=== PATIENT | female | born 1980 | race Caucasian/White ===

== ENCOUNTER 2017-10-25 13:12 | Inpatient (IN) | payer OTHER ==
[2017-10-25] MEDS ORDERED: ONDANSETRON 4 MG INJ IV (14:30)
[2017-10-25] MEDS ORDERED: morphine 2 MG INJ IV (14:30)
[2017-10-25] MEDS: SOD CHLORIDE 0.9% 1,000 ML IV ×2 (14:40→22:03)
[2017-10-25 15:16] LABS: ADD MAN DIFF? NO
[2017-10-25 15:21] LABS: BASOPHIL # 0.1 10^3/ul (0.0-0.1); BASOPHILS % 0.4 % (0.0-2.0); EOSINOPHILS # 0.2 10^3/ul (0.0-0.5); EOSINOPHILS % 1.1 % (0.0-7.0); HEMATOCRIT 40.6 % (37.0-47.0); HEMOGLOBIN 13.1 g/dl (12.0-16.0); LYMPHOCYTES % 9.3 % (15.0-51.0); MEAN CORPUSCULAR HEMOGLOBIN 28.4 pg (29.0-33.0); MEAN CORPUSCULAR HGB CONC 32.3 g/dl (32.0-37.0); MEAN CORPUSCULAR VOLUME 88.1 fl (82.0-101.0); MONOCYTE # 0.8 10^3/ul (0.3-0.9); MONOCYTES % 3.8 % (0.0-11.0); NEUTROPHIL # 17.8 10^3/ul (1.6-7.5); NEUTROPHILS % 84.8 % (39.0-77.0); PLATELET COUNT 370 10^3/UL (140-415); RED BLOOD COUNT 4.61 10^6/ul (4.20-5.40); RED CELL DISTRIBUTION WIDTH 12.5 % (11.5-14.5)
[2017-10-25 15:34] LABS: HEMOGLOBIN A1C 5.3 % (0-5.9)
[2017-10-25 15:38] LABS: LACTIC ACID 1.5 mmol/L (0.5-2.0)
[2017-10-25 15:39] LABS: AMYLASE 55 U/L (11-123)
[2017-10-25 15:39] LABS: CHOL/HDL RATIO 4.2 RATIO; CHOLESTEROL 153 mg/dl (100-200); HDL CHOLESTEROL 36 mg/dl (34-82); LDL CHOLESTEROL,CALCULATED 86 mg/dl; LIPASE 122 U/L (23-300); TRIGLYCERIDES 154 mg/dl (0-149)
[2017-10-25 15:58] LABS: FREE T4 (FREE THYROXINE) 0.79 ng/dl (0.79-2.35)
[2017-10-25 16:10] LABS: ADD UMIC NO; UR ASCORBIC ACID NEGATIVE (NEGATIVE); UR BILIRUBIN (Dip) NEGATIVE (NEGATIVE); UR BLOOD (Dip) NEGATIVE (NEGATIVE); UR CLARITY CLEAR (CLEAR); UR COLOR STRAW (YELLOW); UR GLUCOSE (Dip) NEGATIVE (NEGATIVE); UR KETONES (Dip) NEGATIVE (NEGATIVE); UR LEUKOCYTE ESTERASE (Dip) NEGATIVE Leu/ul (NEGATIVE); UR NITRITE (Dip) NEGATIVE (NEGATIVE); UR SPECIFIC GRAVITY (Dip) 1.005 (1.003-1.030); UR TOTAL PROTEIN (Dip) NEGATIVE (NEGATIVE); UR UROBILINOGEN (Dip) NEGATIVE (NEGATIVE)
[2017-10-25 16:26] LABS: ALANINE AMINOTRANSFERASE 41 IU/L (13-69); ALBUMIN 3.6 g/dl (3.3-4.9); ALBUMIN/GLOBULIN RATIO 1.09; ALKALINE PHOSPHATASE 93 IU/L (42-121); ANION GAP 12 (8-16); ASPARTATE AMINO TRANSFERASE 25 IU/L (15-46); BILIRUBIN,INDIRECT 0.1 mg/dl (0-1.1); BILIRUBIN,TOTAL 0.1 mg/dl (0.2-1.3); BLOOD UREA NITROGEN 6 mg/dl (7-20); CALCIUM 8.5 mg/dl (8.4-10.2); CARBON DIOXIDE 25 mmol/L (21-31); CHLORIDE 105 mmol/L (97-110); CREATININE 0.68 mg/dl (0.44-1.00); GLUCOSE 100 mg/dl (70-220); PHOSPHORUS 3.2 mg/dl (2.5-4.9); SODIUM 138 mmol/L (135-144); TOTAL PROTEIN 6.9 g/dl (6.1-8.1)
[2017-10-25] MEDS: PIPER-TAZO 3.375 GM IV (PMX) 100 ML IVPB ×2 (16:26→22:16)
[2017-10-25] MEDS: LORATADINE 10 MG TAB PO (16:26)
[2017-10-25] MEDS: CEPASTAT LOZENGE MT ×3 (16:27→20:43)
[2017-10-25] MEDS: ACETAMINOPHEN 325 MG TAB PO (16:27)
[2017-10-25 20:03] LABS: LACTIC ACID 1.7 mmol/L (0.5-2.0)
[2017-10-25] MEDS: ALBUTEROL/IPRATROPIUM (NEB) 3 ML AMP HHN (20:29)
[2017-10-26] MEDS: ALBUTEROL/IPRATROPIUM (NEB) 3 ML AMP HHN ×4 (01:15→19:49)
[2017-10-26 05:07] LABS: WHITE BLOOD COUNT 25.4 10^3/ul (4.8-10.8)
[2017-10-26 05:07] LABS: ABNORMAL IP MESSAGE 1; ADD MAN DIFF? NO; BASOPHIL # 0.1 10^3/ul (0.0-0.1); BASOPHILS % 0.3 % (0.0-2.0); EOSINOPHILS # 0.1 10^3/ul (0.0-0.5); EOSINOPHILS % 0.3 % (0.0-7.0); HEMATOCRIT 39.4 % (37.0-47.0); HEMOGLOBIN 12.6 g/dl (12.0-16.0); LYMPHOCYTES # 1.4 10^3/ul (0.8-2.9); LYMPHOCYTES % 5.4 % (15.0-51.0); MEAN CORPUSCULAR HEMOGLOBIN 28.2 pg (29.0-33.0); MEAN CORPUSCULAR VOLUME 88.1 fl (82.0-101.0); MEAN PLATELET VOLUME 9.4 fl (7.4-10.4); MONOCYTE # 0.8 10^3/ul (0.3-0.9); MONOCYTES % 3.1 % (0.0-11.0); NEUTROPHIL # 22.9 10^3/ul (1.6-7.5); NEUTROPHILS % 90.4 % (39.0-77.0); PLATELET COUNT 354 10^3/UL (140-415); RED BLOOD COUNT 4.47 10^6/ul (4.20-5.40); RED CELL DISTRIBUTION WIDTH 12.9 % (11.5-14.5)
[2017-10-26 05:17] LABS: POSITIVE DIFF @See below
[2017-10-26 05:43] LABS: LACTIC ACID 1.6 mmol/L (0.5-2.0)
[2017-10-26 05:55] LABS: ALANINE AMINOTRANSFERASE 44 IU/L (13-69); ALBUMIN 3.4 g/dl (3.3-4.9); ALBUMIN/GLOBULIN RATIO 1.06; ALKALINE PHOSPHATASE 112 IU/L (42-121); ANION GAP 12 (8-16); ASPARTATE AMINO TRANSFERASE 31 IU/L (15-46); BILIRUBIN,INDIRECT 0.3 mg/dl (0-1.1); BILIRUBIN,TOTAL 0.3 mg/dl (0.2-1.3); BLOOD UREA NITROGEN 7 mg/dl (7-20); CALCIUM 8.4 mg/dl (8.4-10.2); CARBON DIOXIDE 26 mmol/L (21-31); CHLORIDE 106 mmol/L (97-110); CREATININE 0.74 mg/dl (0.44-1.00); GLUCOSE 100 mg/dl (70-220); POTASSIUM 3.9 mmol/L (3.5-5.1); SODIUM 140 mmol/L (135-144); TOTAL PROTEIN 6.6 g/dl (6.1-8.1)
[2017-10-26 05:58] LABS: PROTIME 13.3 Sec (11.9-14.9)
[2017-10-26] MEDS: PIPER-TAZO 3.375 GM IV (PMX) 100 ML IVPB ×3 (06:03→22:14)
[2017-10-26] MEDS: SOD CHLORIDE 0.9% 1,000 ML IV ×3 (06:05→22:03)
[2017-10-26 06:33] LABS: MAGNESIUM 2.1 mg/dl (1.7-2.5)
[2017-10-26 06:33] LABS: PHOSPHORUS 3.9 mg/dl (2.5-4.9)
[2017-10-26 09:24] LABS: CARCINOEMBRYONIC ANTIGEN 2.4 ng/ml (0.0-5.0)
[2017-10-26 09:24] LABS: CANCER ANTIGEN 125 8.7 U/ml (0.0-35.0)
[2017-10-26 09:28] LABS: CANCER ANTIGEN 19-9 10.1 U/ml (0.0-37.0)
[2017-10-26 09:29] LABS: ALPHA FETOPROTEIN 1.49 IU/L (0.00-7.21)
[2017-10-26] MEDS: LORATADINE 10 MG TAB PO (09:48)
[2017-10-26] MEDS: METHYLPREDNISOLONE 125 MG INJ IV ×3 (09:49→22:13)
[2017-10-26] MEDS: FAMOTIDINE 20 MG INJ IV ×2 (09:49→22:12)
[2017-10-26] MEDS ORDERED: GLYCOPYRROLATE 0.4 MG INJ (16:44)
[2017-10-26] MEDS ORDERED: PROPOFOL 20 ML (16:44)
[2017-10-26] MEDS ORDERED: NEOSTIGMINE 3 MG/3 ML SYRINGE (16:45)
[2017-10-26] MEDS ORDERED: CEFAZOLIN 1 GM INJ (16:45)
[2017-10-26] MEDS ORDERED: ROPIVACAINE 0.5 % 30 ML VIAL (16:45)
[2017-10-26] MEDS ORDERED: ROCURONIUM 50 MG INJ (16:45)
[2017-10-26] MEDS ORDERED: MIDAZOLAM 1 MG/ML 2 ML INJ (16:45)
[2017-10-26] MEDS ORDERED: METOCLOPRAMIDE 10 MG INJ (16:45)
[2017-10-26] MEDS ORDERED: ONDANSETRON 4 MG INJ (16:45)
[2017-10-26] MEDS ORDERED: ACETAMINOPHEN 1000MG/100ML IV 100 ML (16:46)
[2017-10-26] MEDS: BUPIVACAINE 0.25%/EPI (SDV) 30 ML INJ (17:07)
[2017-10-26] MEDS: LIDOCAINE 1% (MPF) 30 ML INJ (17:07)
[2017-10-26] MEDS ORDERED: ONDANSETRON 4 MG INJ IV (17:30)
[2017-10-26] MEDS ORDERED: ALBUTEROL 0.083% (NEB) 2.5 MG/3 ML AMP HHN (17:30)
[2017-10-26] MEDS ORDERED: DIPHENHYDRAMINE 50 MG INJ IV (17:30)
[2017-10-26] MEDS ORDERED: MEPERIDINE 25 MG INJ IV (17:30)
[2017-10-26] MEDS ORDERED: HYDROmorphONE 1 MG/5 ML IV SYRINGE IV ×3 (17:30)
[2017-10-26] MEDS ORDERED: AMPICILLIN/SULB 3 GM/NS (PMX) 100 ML IVPB (18:00)
[2017-10-26] MEDS ORDERED: KETOROLAC 30 MG INJ IV (18:00)
[2017-10-26] MEDS ORDERED: HYDROmorphONE 0.5 MG/0.5 ML SYG IV (18:00)
[2017-10-26] MEDS ORDERED: ACETAMINOPHEN 325 MG TAB PO (18:00)
[2017-10-26] MEDS ORDERED: FENTAnyl 50 MCG/ML VIAL (18:14)
[2017-10-27] MEDS: SOD CHLORIDE 0.9% 1,000 ML IV (01:03)
[2017-10-27 05:49] LABS: ABNORMAL IP MESSAGE 1; HEMATOCRIT 37.9 % (37.0-47.0); HEMOGLOBIN 12.4 g/dl (12.0-16.0); MEAN CORPUSCULAR HEMOGLOBIN 28.6 pg (29.0-33.0); MEAN CORPUSCULAR HGB CONC 32.7 g/dl (32.0-37.0); MEAN CORPUSCULAR VOLUME 87.5 fl (82.0-101.0); MEAN PLATELET VOLUME 9.5 fl (7.4-10.4); PLATELET COUNT 362 10^3/UL (140-415); RED BLOOD COUNT 4.33 10^6/ul (4.20-5.40); RED CELL DISTRIBUTION WIDTH 12.8 % (11.5-14.5)
[2017-10-27 05:49] LABS: WHITE BLOOD COUNT 28.8 10^3/ul (4.8-10.8)
[2017-10-27 05:51] LABS: ADD MAN DIFF? YES; POSITIVE DIFF @See below
[2017-10-27] MEDS: PIPER-TAZO 3.375 GM IV (PMX) 100 ML IVPB ×3 (05:51→22:38)
[2017-10-27] MEDS: METHYLPREDNISOLONE 125 MG INJ IV ×2 (05:51→13:29)
[2017-10-27 05:52] LABS: PATH REVIEW? YES
[2017-10-27 06:30] LABS: MAGNESIUM 2.2 mg/dl (1.7-2.5)
[2017-10-27 06:30] LABS: PHOSPHORUS 3.3 mg/dl (2.5-4.9)
[2017-10-27 06:50] LABS: ALANINE AMINOTRANSFERASE 55 IU/L (13-69); ALBUMIN 3.6 g/dl (3.3-4.9); ALBUMIN/GLOBULIN RATIO 1.05; ALKALINE PHOSPHATASE 150 IU/L (42-121); ANION GAP 12 (8-16); ASPARTATE AMINO TRANSFERASE 32 IU/L (15-46); BILIRUBIN,INDIRECT 0.1 mg/dl (0-1.1); BILIRUBIN,TOTAL 0.1 mg/dl (0.2-1.3); BLOOD UREA NITROGEN 6 mg/dl (7-20); CALCIUM 8.5 mg/dl (8.4-10.2); CARBON DIOXIDE 23 mmol/L (21-31); CHLORIDE 108 mmol/L (97-110); GLUCOSE 139 mg/dl (70-220); POTASSIUM 4.1 mmol/L (3.5-5.1); SODIUM 139 mmol/L (135-144)
[2017-10-27] MEDS: ENOXAPARIN 30 MG/0.3 ML SYG SC (06:58)
[2017-10-27 07:36] LABS: ANISOCYTOSIS 1+ (0-0); BAND NEUTROPHILS % (M) 7 % (0-4); GIANT THROMBO% (M) 1 % (0-0); LYMPHOCYTES #M 0.5 10^3/ul (0.8-2.9); LYMPHOCYTES % (M) 2 % (15-51); MICROCYTOSIS 1+ (0-0); PLATELET ESTIMATE NORMAL; POLYCHROMASIA 3+ (0-0); REACTIVE LYMPHOCYTES #M 0.2 10^3/ul (0.0-0.0); REACTIVE LYMPHOCYTES% (M) 1 % (0-0); SEG NEUT #M 26.5 10^3/ul (1.6-7.5); SEGMENTED NEUTROPHILS (M) % 90 % (39-77)
[2017-10-27] MEDS: ALBUTEROL/IPRATROPIUM (NEB) 3 ML AMP HHN ×3 (08:01→20:24)
[2017-10-27] MEDS: LORATADINE 10 MG TAB PO (09:31)
[2017-10-27] MEDS: FAMOTIDINE 20 MG INJ IV ×2 (09:31→20:45)
[2017-10-27] MEDS: HYDROCODONE/APAP (5/325) TAB PO ×2 (09:41→13:29)
[2017-10-27] MEDS ORDERED: morphine LIQ (10 MG/5 ML) CUP PO (17:30)
[2017-10-27] MEDS: NACL 0.9% 3 ML SYG IV (20:46)
[2017-10-28] MEDS: PIPER-TAZO 3.375 GM IV (PMX) 100 ML IVPB ×2 (05:51→13:37)
[2017-10-28] MEDS: ALBUTEROL/IPRATROPIUM (NEB) 3 ML AMP HHN ×3 (06:00→13:25)
[2017-10-28] MEDS: ENOXAPARIN 30 MG/0.3 ML SYG SC (06:48)
[2017-10-28] MEDS: FLUTICASONE/VILANTEROL 100-25 INH (09:01)
[2017-10-28] MEDS: FAMOTIDINE 20 MG INJ IV (09:02)
[2017-10-28] MEDS: LORATADINE 10 MG TAB PO (09:02)
[2017-10-28] MEDS: MAGNESIUM HYDROXIDE 30ML CUP PO (10:29)
[2017-10-28 11:56] LABS: ADD MAN DIFF? NO
[2017-10-28 12:10] LABS: ABNORMAL IP MESSAGE 1; BASOPHIL # 0.1 10^3/ul (0.0-0.1); BASOPHILS % 0.3 % (0.0-2.0); EOSINOPHILS % 0.1 % (0.0-7.0); HEMATOCRIT 37.8 % (37.0-47.0); HEMOGLOBIN 12.2 g/dl (12.0-16.0); LYMPHOCYTES # 2.7 10^3/ul (0.8-2.9); LYMPHOCYTES % 9.9 % (15.0-51.0); MEAN CORPUSCULAR HGB CONC 32.3 g/dl (32.0-37.0); MEAN CORPUSCULAR VOLUME 89.8 fl (82.0-101.0); MEAN PLATELET VOLUME 9.5 fl (7.4-10.4); MONOCYTE # 1.1 10^3/ul (0.3-0.9); NEUTROPHIL # 23.1 10^3/ul (1.6-7.5); NEUTROPHILS % 84.3 % (39.0-77.0); PLATELET COUNT 409 10^3/UL (140-415); RED BLOOD COUNT 4.21 10^6/ul (4.20-5.40); RED CELL DISTRIBUTION WIDTH 13.1 % (11.5-14.5)
[2017-10-28 12:10] LABS: WHITE BLOOD COUNT 27.4 10^3/ul (4.8-10.8)
[2017-10-28 12:14] LABS: POSITIVE DIFF @See below
[2017-10-28] MEDS ORDERED: SENNA TAB PO (12:30)
[2017-10-28] MEDS ORDERED: LACTULOSE 30ML CUP PO (12:30)
[2017-10-28] MEDS ORDERED: BISACODYL 10 MG SUPP PR (12:30)
[2017-10-28] MEDS: GUAIFENESIN/DM (SR) TAB PO (13:32)
== END 2017-10-28 18:00 | disposition left against medical advice (07) | DRG 418 ==
LOC: MS1 13:12
PROC: 0FT44ZZ Resection of Gallbladder, Percutaneous Endoscopic Approach (ICD-10-PCS; principal; 2017-10-26 16:41)
DX: K80.00 Calculus of gallbladder with acute cholecystitis without obstruction (principal); J45.901 Unspecified asthma with (acute) exacerbation; E66.9 Obesity, unspecified; N64.89 Other specified disorders of breast; R10.2 Pelvic and perineal pain; Z68.35 Body mass index [BMI] 35.0-35.9, adult
CPT/HCPCS: 71045; 74181; 76642; 76830; 76856; 80053; 80061; 81003; 82105; 82150; 82378; 83036; 83605; 83690; 83735; 84100; 84439; 84443; 84703; 85025; 85610; 85730; 86301; 86304; 86305; 87040; 87070; 87086; 87400; 88304; 94640; 94664